=== PATIENT | male | born 1990 | race Caucasian/White ===

== ENCOUNTER 2017-01-27 08:50 | Emergency (ER) | payer SELFPAY ==
[2017-01-27] MEDS ORDERED: Ketorolac INJ* 30 MG/ML 1 ML VIAL IV ONE (09:22)
[2017-01-27] MEDS ORDERED: Clindamycin 600 MG IVPREMIX(* 600 MG/50 ML SDV IV ONE (09:25)
[2017-01-27] MEDS: NS 0.9% 1000 ML* 2,000 ML IV ONE (09:57)
--- NOTE | 2017-01-27 10:17 | ED ---
Throat Pain/Nasal Congestion - HPI Summary HPI Summary: Patient presents with throat pain and swelling that began three days ago. He feels like he is having trouble swallowing his spit, and has decreased his fluid intake due to pain with swallowing. He denies SOB, fever, chills, N/V/D. He feels like his left neck and tongue are swollen. 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 Onset/Duration: Gradual Onset Severity: Severe Associated Signs And Symptoms: Positive: Negative Cough: None - Allergies/Home Medications Allergies/Adverse Reactions: Allergies Allergy/AdvReac Type Severity Reaction Status Date / Time No Known Allergies Allergy Verified 06/13/14 09:29 PMH/Surg Hx/FS Hx/Imm Hx Previously Healthy: Yes Infectious Disease History: No Infectious Disease History: Denies: Traveled Outside the [place] in Last 30 Days - Family History Known Family History: Positive: None - Social History Occupation: Employed Full-time Lives: With Family Alcohol Use: Occasionally Substance Use Type: Reports: None Smoking Status (MU): Current Every Day Smoker Cessation Counseling: Patient Advised to Stop Review of Systems Negative: Fever, Chills Positive: Sore Throat. Negative: Nasal Discharge Negative: Chest Pain Negative: Shortness Of Breath, Cough Negative: Myalgia Negative: Headache All Other Systems Reviewed And Are Negative: Yes Physical Exam Triage Information Reviewed: Yes Vital Signs On Initial Exam: Initial Vitals Temp Pulse Resp BP Pulse Ox 98.4 F 102 20 153/74 100 01/27/17 08:52 01/27/17 08:52 01/27/17 08:52 01/27/17 08:52 01/27/17 08:52 Vital Signs Reviewed: Yes Appearance: Positive: Well-Appearing, Well-Nourished, Pain Distress Skin: Positive: Warm, Skin Color Reflects Adequate Perfusion, Dry, Soft Head/Face: Positive: Normal Head/Face Inspection Eyes: Positive: EOMI, SUNNI, Conjunctiva Clear ENT: Positive: Hearing grossly normal, Pharyngeal erythema, TMs normal. Negative: Nasal congestion, Tonsillar swelling - airway is open without tonsillar swelling; mild left sided tongue swelling with maceration, Trismus - patient opens mouth wide and easily, Muffled/hoarse voice Dental: Positive: Gross Decay/Caries @ - left lower second molar intact with caries, other molars are missing. Negative: Cervical Lymphadenopathy Neck: Positive: Supple, No Lymphadenopathy, Tenderness @ - bilateral cervical chain Respiratory/Lung Sounds: Positive: Clear to Auscultation, Breath Sounds Present. Negative: Stridor, Tracheal Deviation Cardiovascular: Positive: RRR Musculoskeletal: Negative: Edema Left, Edema Right Neurological: Positive: Sensory/Motor Intact, Alert, Oriented to Person Place, Time, NV Bundle Intact Distally Psychiatric: Positive: Affect/Mood Appropriate AVPU Assessment: Alert Diagnostics - Vital Signs Vital Signs Temp Pulse Resp BP Pulse Ox 01/27/17 08:56 98.4 F 110 20 153/74 100 01/27/17 08:52 98.4 F 102 20 153/74 100 - Laboratory Lab Statement: Any lab studies that have been ordered have been reviewed, and results considered in the medical decision making process. Re-Evaluation - Re-Evaluation First Eval Re-Evaluation Time: 10:30 Change: Improved - pain greatly improved EENT Course/Dx - Differential Diagnoses Differential Diagnoses: Dental Abscess, Dental Caries, Fractured Tooth, Odontogenic Pain, Periodontic Abscess, Periodontic Disease, Pharyngitis, Tonsilitis - Diagnoses Provider Diagnoses: Dental infection Discharge - Discharge Plan Condition: Stable Disposition: HOME Prescriptions: Clindamycin Cap(NF) [Cleocin 300 mg Cap(NF)] 300 mg PO Q6H #39 cap Patient Education Materials: Toothache (ED) Additional Instructions: Please take the antiobiotic prescribed until they are completely gone. Begin using ibuprofen 600mg three times daily with meals tomorrow morning for the next 3-5 days. Call one of the number provided to establish care with a dentist. Return to the emergency department if symptoms worsen.
[2017-01-27 11:18] LABS: Mono Internal Control QC Line Present
[2017-01-27 11:37] VITALS: BP 126/74
== END 2017-01-27 11:34 | disposition home or self-care (01) ==
LOC: ED 08:50
DX: K04.7 Periapical abscess without sinus (principal); F17.200 Nicotine dependence, unspecified, uncomplicated
CPT/HCPCS: 36415; 86308; 87651; 96360; 96374; 96375; 99282; J1885